=== PATIENT | female | born 1985 | race Caucasian/White ===

== ENCOUNTER 2023-09-06 14:34 | Emergency (ER) | payer SELFPAY ==
[2023-09-06] MEDS ORDERED: Acetaminophen 500 MG TAB ONE (17:39)
[2023-09-06] MEDS ORDERED: Ketorolac Tromethamine 30 MG/ML VIAL ONE (17:40)
[2023-09-06] MEDS ORDERED: Methocarbamol 500 MG TAB ONE (17:40)
== END 2023-09-06 18:43 | disposition home or self-care (01) ==
LOC: ERS 14:34
DX: M54.42 Lumbago with sciatica, left side (principal); M54.41 Lumbago with sciatica, right side; G89.29 Other chronic pain; F17.290 Nicotine dependence, other tobacco product, uncomplicated
CPT/HCPCS: 96372; 99283; J1885